=== PATIENT | male | born 1975 | race Caucasian/White ===

== ENCOUNTER 2016-09-22 08:39 | Emergency (ER) | payer SELFPAY | END 2016-09-22 10:33 | disposition home or self-care (01) | LOC: ER1 08:39 | DX: J11.1 Influenza due to unidentified influenza virus with other respiratory manifestations (principal); F17.200 Nicotine dependence, unspecified, uncomplicated | CPT/HCPCS: 71020; 99283 ==

== ENCOUNTER 2020-07-18 17:25 | Observation (INO) | payer OTHER ==
[~2020-07-18] VITALS: Ht 182.9 cm; Wt 115.7 kg
[2020-07-18 18:36] LABS: HEMOGLOBIN 17.4 gm/dl (14.0-17.5); RED BLOOD COUNT 5.75 M/UL (4.20-5.50); WHITE BLOOD COUNT 18.5 K/UL (4.5-11.0)
[2020-07-18 18:52] LABS: BUN/CREATININE RATIO 10 (0-10)
[2020-07-18] MEDS ORDERED: INCRUSE ELLI62.5 MCG INH (21:54)
[2020-07-18] MEDS ORDERED: ALBUTEROL2.5 MG/3 M INH (21:54)
[2020-07-18] MEDS ORDERED: MUCINEX1200 MG PO (21:55)
[2020-07-18] MEDS ORDERED: FLUTICASONE-SA1 EAC4 INH (21:57)
[2020-07-19 07:04] LABS: HEMOGLOBIN 16.2 gm/dl (14.0-17.5); RED BLOOD COUNT 5.57 M/UL (4.20-5.50)
[2020-07-19 07:06] LABS: WHITE BLOOD COUNT 13.5 K/UL (4.5-11.0)
[2020-07-19 07:22] LABS: BUN/CREATININE RATIO 10 (0-10)
[2020-07-19] MEDS ORDERED: COZAAR 25MG TAB25 MG PO (10:56)
[2020-07-19] MEDS ORDERED: LEVOFLOXACIN500 MG PO (10:58)
[2020-07-19] MEDS ORDERED: MEDROL DOSEPAK 24 MG PO (10:58)
== END 2020-07-19 14:14 | disposition home or self-care (01) ==
LOC: ER1 17:25 → MED SURG 4 21:34 → CDU 21:34 → MED SURG 4 21:34
PROVIDERS: Emergency Medicine; Internal Medicine; Physician Assistant Medical; ADMIT Internal Medicine
DX: J44.1 Chronic obstructive pulmonary disease with (acute) exacerbation (principal); E87.2 Acidosis; R06.03 Acute respiratory distress; D72.829 Elevated white blood cell count, unspecified; I10 Essential (primary) hypertension; F15.10 Other stimulant abuse, uncomplicated; F17.210 Nicotine dependence, cigarettes, uncomplicated; Z20.822 Contact with and (suspected) exposure to COVID-19
CPT/HCPCS: 36415; 36600; 71045; 80048; 80053; 80307; 81001; 82009; 82550; 82553; 82803; 83605; 83874; 83880; 84484; 85025; 85379; 87040; 90471; 94640; 94660; 94760; 99285; G0378; J0360; J1956; J2930; U0002

== ENCOUNTER → 2020-07-24 | Outpatient (CLI) | payer OTHER ==
[~2020-07-24] MED LIST: ALBUTEROL2.5 MG/3 M INH; COZAAR 25MG TAB25 MG PO; FLUTICASONE-SA1 EAC4 INH; INCRUSE ELLI62.5 MCG INH; LEVOFLOXACIN500 MG PO; MEDROL DOSEPAK 24 MG PO; MUCINEX1200 MG PO
== END ==
LOC: HEART 5 13:47
DX: J44.9 Chronic obstructive pulmonary disease, unspecified (principal); R94.2 Abnormal results of pulmonary function studies; F17.210 Nicotine dependence, cigarettes, uncomplicated
CPT/HCPCS: 94060; 94729

== ENCOUNTER 2020-12-11 14:58 | Emergency (ER) | payer OTHER ==
[2020-12-11 16:28] LABS: RED BLOOD COUNT 5.28 M/UL (4.20-5.50)
[2020-12-11 16:53] LABS: BUN/CREATININE RATIO 10 (0-10)
== END 2020-12-11 16:53 | disposition home or self-care (01) ==
LOC: ER1 14:58
PROVIDERS: Physician Assistant
DX: R07.9 Chest pain, unspecified (principal); R06.02 Shortness of breath; J44.9 Chronic obstructive pulmonary disease, unspecified; I10 Essential (primary) hypertension; F17.200 Nicotine dependence, unspecified, uncomplicated
CPT/HCPCS: 71045; 80053; 82550; 82553; 83874; 84484; 85025; 93005; 99285